=== PATIENT | female | born 1990 | race African-American/Black ===

== ENCOUNTER → 2020-12-06 | Outpatient (CLI) | payer BC ==
[2017-06-07 19:13] VITALS: BP 114/58
[~2020-12-06] MED LIST: CEPH500C PO; FERR-36 PO; HYDR-2769 PO; ONDA4TAB7 PO; PENI500T PO; SULF1TAB24 PO
--- NOTE | 2020-12-07 06:13 | KCIC ---
INDICATION: Reason: FIBROID / Spl. Instructions: / History: COMPARISON: CT January 2016 TECHNIQUE: Grayscale and color ultrasound images uterus and adnexa. Transabdominal and transvaginal images obtained. Transvaginal images were needed to better visualize structures that were limited on transabdominal imaging. FINDINGS: Uterus: 97 x 65 x 46 mm. Endometrial stripe is 7 mm. Right Ovary: 38 x 29 x 16 mm. Left Ovary: 40 x 18 x 14 mm. Vascular flow identified to bilateral ovaries. There is a suspected 12 mm isoechoic lesion within the myometrium with some mass effect on the adjace nt endometrial stripe. Thick-walled cystic lesion of the left ovary with the central cystic component measuring approximately 16 mm. Free fluid is seen in the pelvis. IMPRESSION: * There is a suspected isoechoic lesion seen within the myometrium abutting the endometrial stripe and causing a small amount of mass effect on it. Most likely cause would be a uterine fibroid. * Thick-walled irregular cystic lesion of the left ovary. Commonly secondary to causes such as invol uting cyst but nonspecific appearance. Electronically signed by: Oscar Ferrari MD (12/07/2020 6:10 AM) [id number]
== END ==
LOC: KCIC US 15:16
PROVIDERS: ATTEND Family Medicine
DX: D25.9 Leiomyoma of uterus, unspecified (principal)
CPT/HCPCS: 76856